=== PATIENT | male | born 1960 | race Caucasian/White ===

== ENCOUNTER 2021-09-09 09:52 | Emergency (ER) | payer SELFPAY ==
[~2021-09-09] VITALS: Ht 175 cm; Wt 70.0 kg
[2021-09-09 10:20] LABS: BASOPHILS # (AUTO) 0.1 10^3/uL (0.0-0.1); BASOPHILS % (AUTO) 1 % (0-10); EOSINOPHILS # (AUTO) 0.1 10^3/uL (0.0-0.3); EOSINOPHILS % (AUTO) 1 % (0-10); HEMATOCRIT 45 % (40-54); HEMOGLOBIN 14.4 g/dL (13.3-17.7); LYMPHOCYTES # (AUTO) 2.5 10^3/uL (1.0-4.0); LYMPHOCYTES % (AUTO) 24 % (12-44); MEAN CORPUSCULAR HEMOGLOBIN 26 pg (25-34); MEAN CORPUSCULAR HGB CONC 32 g/dL (32-36); MEAN CORPUSCULAR VOLUME 83 fL (80-99); MEAN PLATELET VOLUME 9.3 fL (9.0-12.2); MONOCYTES # (AUTO) 0.5 10^3/uL (0.0-1.0); MONOCYTES % (AUTO) 5 % (0-12); NEUTROPHILS # (AUTO) 7.1 10^3/uL (1.8-7.8); NEUTROPHILS % (AUTO) 69 % (42-75); PLATELET COUNT 384 10^3/uL (130-400); WHITE BLOOD COUNT 10.4 10^3/uL (4.3-11.0)
[2021-09-09 10:31] LABS: ALBUMIN 4.2 GM/DL (3.2-4.5); POTASSIUM 3.7 MMOL/L (3.6-5.0)
[2021-09-09 10:32] LABS: CALCIUM 8.6 MG/DL (8.5-10.1)
[2021-09-09 10:34] LABS: TOTAL PROTEIN 7.6 GM/DL (6.4-8.2)
[2021-09-09 10:35] LABS: BILIRUBIN,TOTAL 0.2 MG/DL (0.1-1.0)
[2021-09-09 10:37] LABS: CREATININE SERUM 0.63 MG/DL (0.60-1.30)
--- NOTE | 2021-09-09 10:57 | Diagnostic Imaging Report ---
HISTORY: Right shoulder pain. TECHNIQUE: 2 views of the right shoulder. COMPARISON: None FINDINGS: There is a linear lucency at the lateral scapula extending toward the glenoid neck. This is persistent on 2 views. This could represent a nondisplaced fracture. There are moderate degenerative changes in the acromioclavicular joint. There is no fracture seen at the proximal humerus. Alignment appears normal. IMPRESSION: 1. Linear lucency at the lateral scapula near the glenoid concerning for nondisplaced fracture. Please correlate with the patient's history and if indicated consider cross-sectional imaging. Dictated by: Dictated on workstation # [id number]
[2021-09-09 11:07] VITALS: BP 0/0
--- NOTE | 2021-09-09 11:50 | ED Upper Extremity ---
General Chief Complaint: Upper Extremity Stated Complaint: FALL/RT SHOULDER PAIN Nursing Triage Note: PT TO ED PER EMS FOR C/O RT SHOULDER PAIN ONSET AFTER FALLING IN THE [employer] PARKING LOT. PT DENIES HITTING HEAD, NO DEFORMITY NOTED AT THIS TIME. PT DOES SMELL OF ETOH AT THIS TIME ET ADMITS TO DRINKING. Source: patient Exam Limitations: intoxication History of Present Illness Date Seen by Provider: Sep 09, 2021 Time Seen by Provider: 09:58 Initial Comments This 61-year-old gentleman presents to the emergency room via EMS after falling in the parking lot of a local retailer. He had been causing problems in multiple retailers this morning and appears intoxicated. He complains of right shoulder pain. EMS observed him moving his upper extremities bilaterally. He appears intoxicated but not in distress. He is ambulatory. Allergies and Home Medications Allergies Coded Allergies: morphine (Unverified Allergy, Unknown, 09/09/21) Patient Home Medication List Home Medication List Reviewed: Yes Review of Systems Constitutional: see HPI EENTM: no symptoms reported Respiratory: no symptoms reported Cardiovascular: no symptoms reported Gastrointestinal: no symptoms reported Genitourinary: no symptoms reported Musculoskeletal: see HPI Skin: no symptoms reported Psychiatric/Neurological: See HPI Past Xffjuzt-Zcdjdy-Cqeaaa Hx Patient Social History Tobacco Use?: Yes Tobacco type used: Cigarettes Smoking Status: Current Everyday Smoker Substance use?: No Alcohol Use?: Yes Alcohol Frequency: Daily Pt feels they are or have been: No Past Medical History Surgery/Hospitalization HX: ABDOMINAL SURGERY-PT POOR HISTORIAN Surgeries: Yes Abdominal Physical Exam Vital Signs Vital Signs - First Documented 09/09/21 09:54 Temp 35.9 Pulse 80 Resp 20 B/P (MAP) 145/90 (108) Pulse Ox 95 O2 Delivery Room Air Capillary Refill : Less Than 3 Seconds Height, Weight, BMI Height: '" Weight: lbs. oz. kg; 22.00 BMI Method: General Appearance: WD/WN, no apparent distress HEENT: normal ENT inspection Neurologic/Psychiatric: no motor/sensory deficits, alert Patient left and would not return to the exam room. Exam was incomplete. Patient was observed to be moving both upper extremities equally. Progress/Results/Core Measures Results/Orders Lab Results Laboratory Tests Test 09/09/21 10:14 Range/Units White Blood Count 10.4 4.3-11.0 10^3/uL Red Blood Count 5.46 4.30-5.52 10^6/uL Hemoglobin 14.4 13.3-17.7 g/dL Hematocrit 45 40-54 % Mean Corpuscular Volume 83 80-99 fL Mean Corpuscular Hemoglobin 26 25-34 pg Mean Corpuscular Hemoglobin Concent 32 32-36 g/dL Red Cell Distribution Width 16.4 H 10.0-14.5 % Platelet Count 384 130-400 10^3/uL Mean Platelet Volume 9.3 9.0-12.2 fL Immature Granulocyte % (Auto) 1 % Neutrophils (%) (Auto) 69 42-75 % Lymphocytes (%) (Auto) 24 12-44 % Monocytes (%) (Auto) 5 0-12 % Eosinophils (%) (Auto) 1 0-10 % Basophils (%) (Auto) 1 0-10 % Neutrophils # (Auto) 7.1 1.8-7.8 10^3/uL Lymphocytes # (Auto) 2.5 1.0-4.0 10^3/uL Monocytes # (Auto) 0.5 0.0-1.0 10^3/uL Eosinophils # (Auto) 0.1 0.0-0.3 10^3/uL Basophils # (Auto) 0.1 0.0-0.1 10^3/uL Immature Granulocyte # (Auto) 0.1 0.0-0.1 10^3/uL Sodium Level 143 135-145 MMOL/L Potassium Level 3.7 3.6-5.0 MMOL/L Chloride Level 106 98-107 MMOL/L Carbon Dioxide Level 20 L 21-32 MMOL/L Anion Gap 17 H 5-14 MMOL/L Blood Urea Nitrogen 13 7-18 MG/DL Creatinine 0.63 0.60-1.30 MG/DL Estimat Glomerular Filtration Rate 110 BUN/Creatinine Ratio 21 Glucose Level 88 70-105 MG/DL Calcium Level 8.6 8.5-10.1 MG/DL Corrected Calcium 8.4 L 8.5-10.1 MG/DL Total Bilirubin 0.2 0.1-1.0 MG/DL Aspartate Amino Transf (AST/SGOT) 31 5-34 U/L Alanine Aminotransferase (ALT/SGPT) 15 0-55 U/L Alkaline Phosphatase 112 40-136 U/L Total Protein 7.6 6.4-8.2 GM/DL Albumin 4.2 3.2-4.5 GM/DL Serum Alcohol 357 *H <10 MG/DL My Orders Orders - ALLEN CLARK MD Alcohol (09/09/21 09:59) Comprehensive Metabolic Panel (09/09/21 09:59) Ed Iv/Invasive Line Start (09/09/21 09:59) Cbc With Automated Diff (09/09/21 09:59) Shoulder, Right, 3 Views (09/09/21 10:00) Vital Signs/I&O 09/09/21 09/09/21 09:54 11:07 Temp 35.9 Pulse 80 0 Resp 20 0 B/P (MAP) 145/90 (108) 0/0 Pulse Ox 95 0 O2 Delivery Room Air Room Air Blood Pressure Mean: 0 Progress Progress Note : Progress Note Labs and x-ray were obtained prior to patient being examined by the provider. Patient then decided to leave AGAINST MEDICAL ADVICE. I found him sitting in the waiting room and advised that he return to his exam room for physical exam and treatment as there was a fracture through the scapula identified on x-ray. I explained the situation and encouraged him to come back to the exam room. Patient declined. Exam was not performed and treatment was therefore not rendered. I did discuss the fracture with Dr. Butler who recommended a sling and follow-up. Patient was informed of need to have orthopedic referral and consultation from the ER. He still declined to be examined and treated. Diagnostic Imaging Diagonstic Imaging: Xray Plain Films/CT/US/NM/MRI: other (Right shoulder) Comments X-ray reviewed by me and report reviewed. See report below NAME: [facility] REC#: [id number] PT STATUS: DEP ER : 1960 PHYSICIAN: ALLEN CLARK MD ADMIT DATE: 09/09/21/ER Signed Date of Exam:09/09/21 SHOULDER, RIGHT, 3 VIEWS HISTORY: Right shoulder pain. TECHNIQUE: 2 views of the right shoulder. COMPARISON: None FINDINGS: There is a linear lucency at the lateral scapula extending toward the glenoid neck. This is persistent on 2 views. This could represent a nondisplaced fracture. There are moderate degenerative changes in the acromioclavicular joint. There is no fracture seen at the proximal humerus. Alignment appears normal. IMPRESSION: 1. Linear lucency at the lateral scapula near the glenoid concerning for nondisplaced fracture. Please correlate with the patient's history and if indicated consider cross-sectional imaging. Dictated by: Dictated on workstation # [id number] Dict: 09/09/21 1032 Trans: 09/09/21 1137 [id number] Interpreted by: CEDRICK WORKMAN MD Electronically signed by: CEDRICK WORKMAN MD 09/09/21 1137 Departure Impression Primary Impression: Right scapula fracture Qualified Codes: S42.101A - Fracture of unspecified part of scapula, right shoulder, initial encounter for closed fracture Additional Impressions: Fall on same level as cause of accidental injury Alcohol intoxication Qualified Codes: F10.929 - Alcohol use, unspecified with intoxication, unspecified Left against medical advice Disposition: 07 AGAINST MEDICAL ADVICE Condition: Against Medical Advice Departure-Patient Inst. Referrals: NO,LOCAL PHYSICIAN (PCP) Primary Care Physician ALLEN CLARK MD Sep 09, 2021 11:50
== END 2021-09-09 11:07 | disposition left against medical advice (07) ==
LOC: ER 09:57
DX: S42.191A Fracture of other part of scapula, right shoulder, initial encounter for closed fracture (principal); W18.30XA Fall on same level, unspecified, initial encounter; Y93.01 Activity, walking, marching and hiking; Y92.481 Parking lot as the place of occurrence of the external cause; F10.929 Alcohol use, unspecified with intoxication, unspecified; Y90.8 Blood alcohol level of 240 mg/100 ml or more; F17.210 Nicotine dependence, cigarettes, uncomplicated
CPT/HCPCS: 73030; 80053; 85025; 99283; G0480; 36415; 80320

== ENCOUNTER 2021-09-19 04:58 | Emergency (ER) | payer SELFPAY ==
[~2021-09-19] VITALS: Ht 173 cm; Wt 65.3 kg
[2021-09-19] MEDS ORDERED: TETANUS,DIPTH,PERTUSS P/F (BOOSTRIX) 0.5 ML VIAL IM ONE (05:15)
--- NOTE | 2021-09-19 05:28 | ED General ---
General Chief Complaint: General Problems/Pain Stated Complaint: COLD Source of Information: Patient (EXTREMELY DIFFICULT HISTORIAN), EMS (TERESITA SEARS DO) History of Present Illness Date Seen by Provider: Sep 19, 2021 Time Seen by Provider: 04:58 Initial Comments PT ARRIVES VIA EMS PT IS HOMELESS AND WAS FOUND ASLEEP IN THE LOBBY OF THE POST OFFICE POLICE WERE REMOVING HIM FROM THE PREMISES AND THEN PT C/O "WHOLE BODY PAINS" AND REQUESTED TO COME TO HOSPITAL IS VERY COLD OUTSIDE. TEMP IS 17 DEGREES WITH WIND CHILL OF 7 DEGREES. PT IS WEARING LONG SLEEVED SHIRT, HAS SWEAT JACKET AND HEAVY WINTER COAT WITH HIM AND IS WEARING JEANS, SOCKS AND TENNIS SHOES. PT HAS BEEN INCONTINENT OF URINE PT STATES "I'M AN ALCOHOLIC" --STATES HE HAS HAD "2 BEERS AND 1/2 PINT OF WHISKEY" TODAY PT STATES "I JUST CAN'T GO ANYMORE" --PT STATES HE WALKED FROM [facility] TO THE POST OFFICE--STATES "IT TOOK ME ALL DAY" EMS REPORT THAT PT WAS ABLE TO WALK DOWN THE POST OFFICE STAIRS AND TO THE AMBULANCE ON HIS OWN. STATES "THE WHOLE RIGHT SIDE" OF HIS BODY HURTS WAS SEEN HERE 09/09/21 ( PT'S FIRST VISIT HERE) --STATES HE FELL ON THE ICE--STATES "I KNOW I BROKE MY SHOULDER" "I LEFT AND I KNOW I SHOULDN'T HAVE" PT WAS FOUND TO HAVE A SCAPULA FRACTURE, BUT LEFT AMA. PT APPEARED INTOXICATED AT THAT VISIT. PT WAS ADVISED TO FOLLOW UP WITH DR. GRAVES, WHICH HE HAS NOT DONE. SEE THAT CHART FOR DETAILS TODAY, PT C/O CONTINUED RIGHT SHOULDER PAIN C/O RIGHT HIP AND THIGH PAIN C/O INJURY TO BACK OF HEAD PT CANNOT GIVE DETAILS OF HOW OR WHEN HE INJURED THESE AREAS, OR WHETHER THEY WERE FROM THE SAME INJURY ON 09/09/21. PT DENIES BEING ON ANY MEDICATIONS OF ANY KIND. PT STATES HE HAD HERNIA SURGERY AT [facility] IN [place], [place] ON 07/26/21. HAS NOT HAD COVID OR FLU VACCINES PCP: NONE (TERESITA SEARS DO) Allergies and Home Medications Allergies Coded Allergies: morphine (Unverified Allergy, Unknown, 09/09/21) Patient Home Medication List Home Medication List Reviewed: Yes (ADRIANO SOLANO MD) Review of Systems Review of Systems Constitutional: no symptoms reported Respiratory: no symptoms reported Cardiovascular: no symptoms reported Gastrointestinal: no symptoms reported Genitourinary: no symptoms reported Musculoskeletal: see HPI Skin: no symptoms reported Psychiatric/Neurological: Denies Headache, Denies Numbness, Denies Paresthesia, Denies Tingling, Denies Weakness Hematologic/Lymphatic: No Symptoms Reported Immunological/Allergic: no symptoms reported (TERESITA SEARS DO) Past Bafrhhw-Ihuzmg-Sjovdm Hx Patient Social History Tobacco Use?: Yes (2 PPD) Tobacco type used: Cigarettes Smoking Status: Current Everyday Smoker Use of E-Cig and/or Vaping dev: No Substance use?: Yes Substance type: Marijuana Substance frequency: Couple times a week Alcohol Use?: Yes Alcohol type: Hard Liquor Alcohol Frequency: Daily Pt feels they are or have been: No (TERESITA SEARS DO) Immunizations Up To Date Influenza Vaccine Up-to-Date: No; Not Current First/Initial COVID19 Vaccinat: N/A (TEREISTA SEARS DO) Past Medical History Surgery/Hospitalization HX: HERNIA REPAIR X 27 JUL 2021 AT [place], [place] ALCOHOLIC Surgeries: Yes Abdominal, Bowel Surgery, Orthopedic Respiratory: No Cardiac: No Neurological: No Genitourinary: No Gastrointestinal: Yes Abdominal Hernia Musculoskeletal: Yes Fractures Endocrine: No HEENT: No Cancer: No Psychosocial: Yes (ALCOHOLISM) Integumentary: No Blood Disorders: No (TERESITA SEARS DO) Family Medical History PAST SURGICAL HISTORY: -INGUINAL HERNIA REPAIR X 2 ON 07/2021 AT [place], [place] -BOWEL SURGERY/EXPLORATORY LAP--PT STATES "MY INTESTINES BROKE" -LEFT EAR SURGERY -LEFT ARM SURGERY -LEFT FOOT FRACTURE/ORIF (TERESITA SEARS DO) Physical Exam Vital Signs Vital Signs - First Documented 09/19/21 05:00 Temp 37.0 Pulse 84 Resp 16 B/P (MAP) 150/89 (109) Pulse Ox 97 O2 Delivery Room Air (ADRIANO SOLANO MD) Vital Signs Capillary Refill : (TERESITA SEARS DO) Height, Weight, BMI Height: '" Weight: lbs. oz. kg; 22.00 BMI Method: General Appearance: No Apparent Distress, WD/WN, Thin, Other (DIRTY, MALODOUROUS, UNKEMPT, REEKS OF ALCOHOL AND CIGARETTES. DOES NOT APPEAR TO BE IN ANY DISCOMFORT OR DISTRESS. SPEECH IS CLEAR. HAS BEEN INCONTINENT OF URINE) HEENT: PERRL/EOMI Neck: Full Range of Motion, Normal Inspection, Non Tender, Supple Respiratory: Chest Non Tender, Normal Breath Sounds, No Accessory Muscle Use, No Respiratory Distress Cardiovascular: Regular Rate, Rhythm, No Edema, No JVD, No Murmur, Normal Peripheral Pulses Gastrointestinal: Non Tender, Soft, Other (WELL HEALED BILATERAL INGUINAL INCISIONS. ) Back: No CVA Tenderness, No Vertebral Tenderness, Other (TENDERNESS TO RIGHT SHOULDER AND SCAPULA AREA, BUT NO EXTERNAL EVIDENCE OF TRAUMA TO THIS AREA, NO DEFORMITY, NO SWELLING AND HAS FULL ROM OF BOTH ARMS. TENDERNESS TO BILATERAL HIPS, RIGHT FEMUR. NO EXTERNAL EVIDENCE OF TRAMA. NO DEFORMITY, NO SHORTENING OR ROTATION. FULL ROM. ) Extremity: Normal Capillary Refill, Normal Range of Motion, No Pedal Edema Neurologic/Psychiatric: Alert, Oriented x3, No Motor/Sensory Deficits, electrical sign servicer II- XII Norm as Tested, Other (APPEARS INTOXICATED. ) Skin: Normal Color, Warm/Dry, Other (SORES/SCARS/SCABS TO FACE, ARMS, CHEST AND UPPER BACK. ) (TERESITA SEARS DO) Progress/Results/Core Measures Suspected Sepsis SIRS Temperature: Pulse: Respiratory Rate: Blood Pressure / Mean: (TERESITA SEARS DO) Results/Orders My Orders Orders - ADRIANO SOLANO MD Ketorolac Injection (Toradol Injection) (09/19/21 07:15) (ADRIANO SOLANO MD) Medications Given in ED (ADRIANO SOLANO MD) Vital Signs/I&O 09/19/21 09/19/21 05:00 07:51 Temp 37.0 Pulse 84 97 Resp 16 16 B/P (MAP) 150/89 (109) 145/85 Pulse Ox 97 98 O2 Delivery Room Air Room Air (ADRIANO SOLANO MD) Vital Signs/I&O Capillary Refill : (TERESITA SEARS DO) Progress Note : Time: 07:30 Progress Note Patient care assumed at shift change. Patient resting comfortably, about to eat a little breakfast. Complains of some mild posterior right shoulder pain consistent with prior nondisplaced scapular fracture that was found. Vital signs are stable, room air sats 99%. Patient does complain of mild cough with a little bit of yellow sputum. Does smoke cigarettes. No fevers reported. Chest x-ray is clear. All of his imaging studies ordered by the prior physician have been reviewed no acute pathology is found. Patient is advised of the availability of shelters in [place]. He thinks that he may have a friend who may be able to take him there later this week. Patient has no other acute clinical or objective findings to warrant further evaluation at this emergency department visit. Will be discharged. (ADRIANO SOLANO MD) Diagnostic Imaging Diagonstic Imaging: Xray Comments [facility] [place] [place] [facility] REC#: [id number] PT STATUS: REG ER : 1960 PHYSICIAN: TERESITA SEARS DO ADMIT DATE: 09/19/21/ER Draft Date of Exam:09/19/21 SHOULDER, RIGHT, 3 VIEWS INDICATION: Right shoulder pain TECHNIQUE: Three views of the right shoulder CORRELATION STUDY: 09/09/2021 FINDINGS: The glenohumeral and acromioclavicular alignment are maintained and unremarkable. Mild hypertrophic spurring at the acromioclavicular joint. There is again demonstration of a linear lucency at the lateral scapula near the glenoid. The visualized soft tissues are unremarkable. IMPRESSION: 1. Linear lucency lateral scapula near the glenoid again demonstrated. Could reflect a nondisplaced fracture but appears unchanged from prior. No dislocation. Dictated on workstation # [id number] Dict: 09/19/21 0654 Trans: 09/19/21 0706 [facility] [id number] Interpreted by: TAMERA RICHARD DO Electronically signed by: [facility] [place], [place] NAME: [facility] REC#: [id number] PT STATUS: REG ER : 1960 PHYSICIAN: TERESITA SEARS DO ADMIT DATE: 09/19/21/ER Draft Date of Exam:09/19/21 PELVIS/MINISTERIO HIPS 5> VIEWS INDICATION: Pelvic pain, post trauma TECHNIQUE: AP pelvis along with 2 views right hip, and single view left hip, 6:26 AM CORRELATION STUDY: None FINDINGS: The pelvis demonstrates no evidence for acute fracture. The pectineal lines and obturator rings are maintained. Pubic symphysis and SI joints are unremarkable. Images of the hip demonstrate no evidence for acute fracture. Alignment is anatomic. The femoral head acetabular relationship is unremarkable. The bony trabecular pattern is intact. IMPRESSION: Negative examination of the pelvis and bilateral hips. Dictated on workstation # [id number] Dict: 09/19/21 0652 Trans: 09/19/21 0653 DO [id number] Interpreted by: TAMERA RICHARD DO Electronically signed by: [employer] [facility] [place], [place] NAME: LARS [facility] REC#: [id number] PT STATUS: REG ER : 1960 PHYSICIAN: TERESITA SEARS DO ADMIT DATE: 09/19/21/ER Draft Date of Exam:09/19/21 CT HEAD/CERVICAL SPINE WO PROCEDURE: CT head and CT cervical spine without contrast. TECHNIQUE: Multiple contiguous axial images were obtained through the brain and cervical spine without the use of intravenous contrast. Sagittal and coronal reformations through the cervical spine were then performed. Auto Exposure Controls were utilized during the CT exam to meet ALARA standards for radiation dose reduction. INDICATION: Status post trauma, pain EXAMINATION: CT brain CT cervical spine 09/19/2021 FINDINGS: BRAIN: FINDINGS: Multiple axial images of the brain without contrast. There is no evidence for acute hemorrhage or infarct. There is no mass, mass effect, midline shift or hydrocephalus. The paranasal sinuses and mastoid air cells demonstrate no acute abnormality. IMPRESSION: No acute intracranial process. Not mentioned above the left mastoid air cells are partially opacified age indeterminate correlate clinically. There is surrounding sclerosis which would suggest a possible chronic mastoiditis but clinical correlation is recommended. CT CERVICAL SPINE: There is normal height and alignment of the vertebral bodies. There is intervertebral disc space narrowing and endplate sclerosis and spurring as well as subchondral cystic change at C5-C6. Mild narrowing and spurring noted at C3-C4 and C6-C7. There are no acute fractures. Multilevel bilateral facet hypertrophy is noted. The prevertebral soft tissues appear unremarkable. Lung apices demonstrate mild emphysematous changes and scarring right worse than left. A slightly spiculated appearing abnormality in the right lung apex is likely scar but follow-up with CT imaging of the chest non-emergently to assure stability recommended. Evidence of old granulomatous disease is also seen. IMPRESSION: 1. Diffuse degenerative changes with no acute osseous abnormality. 2. Incidental findings in the visualized lung apices see above discussion. Dictated on workstation # [id number] Dict: 09/19/21 0658 Trans: 09/19/21 0705 LOY [id number] Interpreted by: JIN JOHN MD Electronically signed by: [employer] [place], [place] NAME: [facility] REC#: [id number] PT STATUS: REG ER : 1960 PHYSICIAN: TERESITA SEARS DO ADMIT DATE: 09/19/21/ER Draft Date of Exam:09/19/21 FEMUR, RIGHT, 2 VIEWS INDICATION: Leg pain post trauma TECHNIQUE: Frontal and Lateral views of the right femur CORRELATION STUDY: None FINDINGS: Examination of the femur demonstrates no evidence for acute bony abnormality or fracture of the femur. No edwin bony destructive change. Imaging of the hip and knee are unremarkable. Soft tissues are unremarkable. IMPRESSION: 1. Negative for acute bony abnormality of the right femur. Dictated on workstation # [id number] Dict: 09/19/21 0654 Trans: 09/19/21 0654 DO [id number] Interpreted by: TAMERA RICHARD DO Electronically signed by: [employer] [facility] [place], [place] NAME: [facility] REC#: [id number] PT STATUS: REG ER : 1960 PHYSICIAN: TERESITA SEARS DO ADMIT DATE: 09/19/21/ER Draft Date of Exam:09/19/21 FEMUR, LEFT, 2 VIEWS INDICATION: Leg pain post trauma TECHNIQUE: Frontal and Lateral views of the left femur CORRELATION STUDY: None FINDINGS: Femur appears to be intact. Visualized portion hip and knee unremarkable. Soft tissues unremarkable. IMPRESSION: 1. Negative for acute bony abnormality of the left femur. Dictated on workstation # [id number] Dict: 09/19/21 0656 Trans: 09/19/21 07 LOY [id number] Interpreted by: TAMERA RICHARD DO Electronically signed by: [employer] [facility] [place] NAME: LARS [facility]IA [facility] REC#: [id number] PT STATUS: REG ER : 1960 PHYSICIAN: TERESITA SEARS DO ADMIT DATE: 09/19/21/ER Draft Date of Exam:09/19/21 CHEST 1 VIEW, AP/PA ONLY INDICATION: Pain post trauma. TECHNIQUE: Single view chest 6:22 AM. CORRELATION STUDY: None FINDINGS: The heart size, mediastinal configuration and pulmonary vascularity are within normal limits. Chronic appearance about the lung parenchyma from interstitial markings. No infiltrate, effusion or evidence for pneumothorax. Acute displaced fracture. IMPRESSION: 1. Negative for acute traumatic abnormality of the chest. Dictated on workstation # [id number] Dict: 09/19/21 0651 Trans: 09/19/21 0707 LOY [id number] Interpreted by: TAMERA RICHARD DO Electronically signed by: (ADRIANO SOLANO MD) Departure Impression Primary Impression: Musculoskeletal pain Additional Impressions: Chronic alcoholism Homelessness unspecified Disposition: 01 HOME, SELF-CARE Condition: Stable Departure-Patient Inst. Decision time for Depature: 07:33 (ADRIANO SOLANO MD) Referrals: [facility],LOCAL PHYSICIAN (PCP) Primary Care Physician Patient Instructions: Alcohol Use Disorder ED Add. Discharge Instructions: You can take ibuprofen as needed for pain, 3 tablets which is 600mg, every 8 hours with food. [facility] can see you for chronic medical conditions. They can also refer you to [facility] for Alcohol Abuse counselling/ Treatment. [place] has several Homeless Shelters - [facility] [facility] a two of them. Return to the Emergency Department for any new, concerning or emergent complaints. TERESITA SEARS DO Sep 19, 2021 05:28 ADRIANO SOLANO MD Sep 19, 2021 07:36
--- NOTE | 2021-09-19 06:54 | Diagnostic Imaging Report ---
INDICATION: Pelvic pain, post trauma TECHNIQUE: AP pelvis along with 2 views right hip, and single view left hip, 6:26 AM CORRELATION STUDY: None FINDINGS: The pelvis demonstrates no evidence for acute fracture. The pectineal lines and obturator rings are maintained. Pubic symphysis and SI joints are unremarkable. Images of the hip demonstrate no evidence for acute fracture. Alignment is anatomic. The femoral head acetabular relationship is unremarkable. The bony trabecular pattern is intact. IMPRESSION: Negative examination of the pelvis and bilateral hips. Dictated by: Dictated on workstation # [id number]
--- NOTE | 2021-09-19 06:55 | Diagnostic Imaging Report ---
INDICATION: Leg pain post trauma TECHNIQUE: Frontal and Lateral views of the right femur CORRELATION STUDY: None FINDINGS: Examination of the femur demonstrates no evidence for acute bony abnormality or fracture of the femur. No edwin bony destructive change. Imaging of the hip and knee are unremarkable. Soft tissues are unremarkable. IMPRESSION: 1. Negative for acute bony abnormality of the right femur. Dictated by: Dictated on workstation # [id number]
--- NOTE | 2021-09-19 07:06 | Diagnostic Imaging Report ---
PROCEDURE: CT head and CT cervical spine without contrast. TECHNIQUE: Multiple contiguous axial images were obtained through the brain and cervical spine without the use of intravenous contrast. Sagittal and coronal reformations through the cervical spine were then performed. Auto Exposure Controls were utilized during the CT exam to meet ALARA standards for radiation dose reduction. INDICATION: Status post trauma, pain EXAMINATION: CT brain CT cervical spine 09/19/2021 FINDINGS: BRAIN: FINDINGS: Multiple axial images of the brain without contrast. There is no evidence for acute hemorrhage or infarct. There is no mass, mass effect, midline shift or hydrocephalus. The paranasal sinuses and mastoid air cells demonstrate no acute abnormality. IMPRESSION: No acute intracranial process. Not mentioned above the left mastoid air cells are partially opacified age indeterminate correlate clinically. There is surrounding sclerosis which would suggest a possible chronic mastoiditis but clinical correlation is recommended. CT CERVICAL SPINE: There is normal height and alignment of the vertebral bodies. There is intervertebral disc space narrowing and endplate sclerosis and spurring as well as subchondral cystic change at C5-C6. Mild narrowing and spurring noted at C3-C4 and C6-C7. There are no acute fractures. Multilevel bilateral facet hypertrophy is noted. The prevertebral soft tissues appear unremarkable. Lung apices demonstrate mild emphysematous changes and scarring right worse than left. A slightly spiculated appearing abnormality in the right lung apex is likely scar but follow-up with CT imaging of the chest non-emergently to assure stability recommended. Evidence of old granulomatous disease is also seen. IMPRESSION: 1. Diffuse degenerative changes with no acute osseous abnormality. 2. Incidental findings in the visualized lung apices see above discussion. Dictated by: Dictated on workstation # [id number]
--- NOTE | 2021-09-19 07:07 | Diagnostic Imaging Report ---
INDICATION: Right shoulder pain TECHNIQUE: Three views of the right shoulder CORRELATION STUDY: 09/09/2021 FINDINGS: The glenohumeral and acromioclavicular alignment are maintained and unremarkable. Mild hypertrophic spurring at the acromioclavicular joint. There is again demonstration of a linear lucency at the lateral scapula near the glenoid. The visualized soft tissues are unremarkable. IMPRESSION: 1. Linear lucency lateral scapula near the glenoid again demonstrated. Could reflect a nondisplaced fracture but appears unchanged from prior. No dislocation. Dictated by: Dictated on workstation # [id number]
--- NOTE | 2021-09-19 07:07 | Diagnostic Imaging Report ---
INDICATION: Leg pain post trauma TECHNIQUE: Frontal and Lateral views of the left femur CORRELATION STUDY: None FINDINGS: Femur appears to be intact. Visualized portion hip and knee unremarkable. Soft tissues unremarkable. IMPRESSION: 1. Negative for acute bony abnormality of the left femur. Dictated by: Dictated on workstation # [id number]
--- NOTE | 2021-09-19 07:08 | Diagnostic Imaging Report ---
INDICATION: Pain post trauma. TECHNIQUE: Single view chest 6:22 AM. CORRELATION STUDY: None FINDINGS: The heart size, mediastinal configuration and pulmonary vascularity are within normal limits. Chronic appearance about the lung parenchyma from interstitial markings. No infiltrate, effusion or evidence for pneumothorax. Acute displaced fracture. IMPRESSION: 1. Negative for acute traumatic abnormality of the chest. Dictated by: Dictated on workstation # [id number]
[2021-09-19] MEDS ORDERED: KETOROLAC 30 MG/ML VIAL IM ONE (07:15)
[2021-09-19 07:51] VITALS: BP 145/85
== END 2021-09-19 07:51 | disposition home or self-care (01) ==
LOC: EDUNIT# 04:58 → ER 05:00
DX: M79.18 Myalgia, other site (principal); F10.20 Alcohol dependence, uncomplicated; F17.210 Nicotine dependence, cigarettes, uncomplicated; Z59.00 Homelessness unspecified; Z23 Encounter for immunization
CPT/HCPCS: 70450; 71045; 72125; 73030; 73523; 73552; 90715